=== PATIENT | male | born 1955 | race Caucasian/White ===

== ENCOUNTER 2017-03-13 10:52 | Emergency (ER) | payer OTHER ==
[~2017-03-13] VITALS: Ht 177.8 cm; Wt 71.2 kg
--- NOTE | 2017-03-13 10:52 | NUR ---
PT BIB SELF LEFT FINGER LAC 3RD DIGIT CUTTING LETTUCE W KNIFE. APPLIED PRESSURE ON WOUND. AWAITING MD ORDER
--- NOTE | 2017-03-13 11:17 | NUR ---
Patient discharged to home in stable condition. Written and verbal after care instructions given. Patient verbalizes understanding of instruction.
[2017-03-13 11:56] VITALS: BP 138/85
== END 2017-03-13 11:56 | disposition home or self-care (01) ==
LOC: ER 10:53
DX: S61.212A Laceration without foreign body of right middle finger without damage to nail, initial encounter (principal); I25.2 Old myocardial infarction; Z95.818 Presence of other cardiac implants and grafts; W26.0XXA Contact with knife, initial encounter; Y93.89 Activity, other specified; Y92.89 Other specified places as the place of occurrence of the external cause; Y99.9 Unspecified external cause status
CPT/HCPCS: A4606; A6403; Z7610

== ENCOUNTER 2018-03-20 18:54 | Emergency (ER) | payer OTHER ==
[~2018-03-20] VITALS: Ht 177.8 cm; Wt 78.0 kg
--- NOTE | 2018-03-20 19:17 | NUR ---
RECEIVED REPORT FROM TIMOTHY JORDAN FOR MARCY.
--- NOTE | 2018-03-20 19:20 | NUR ---
PT BB SELF C/O BACK PAIN, LEFT ARM NUMBNESS, AND STATES "JAW FEELS TIGHT" X 4 DAYS. PT DENIES ANY CP AT THIS TIME. VSS. SKIN WNL. -N/V/D. -DIZZINESS. PT IS AAOX4. NO S/S OF ACUTE DISTRESS NOTED. RESP EVEN AND UNLABORED. 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 PT SAFETY AND COMFORT MEASURES IN PLACE. MD AT BEDSIDE FOR EVAL
[2018-03-20 19:43] LABS: BASOPHILS # (AUTO) 0.2 /CMM (0.0-0.2); BASOPHILS % (AUTO) 2.7 % (0.0-2.0); EOSINOPHILS % (AUTO) 6.6 % (0.0-6.0); HEMATOCRIT 45 % (39-51); HEMOGLOBIN 16.2 g/dL (13.5-17.5); LYMPHOCYTES # (AUTO) 2.2 /CMM (0.8-4.8); LYMPHOCYTES % (AUTO) 28.9 % (20.0-44.0); MEAN CORPUSCULAR HGB CONC 37 g/dl (31.0-36.0); MEAN CORPUSCULAR VOLUME 89 fL (80-96); MONOCYTES # (AUTO) 0.5 /CMM (0.1-1.30); MONOCYTES % (AUTO) 6.3 % (2.0-12.0); NEUTROPHILS # (AUTO) 4.1 /CMM (1.8-8.9); NEUTROPHILS % (AUTO) 55.5 % (43.0-81.0); PLATELET COUNT (AUTO) 208 /CMM (150-450); RDW COEFFICIENT OF VARIATION 12.2 (11.5-15.0); RED BLOOD CELL COUNT(AUTO) 5.01 MIL/uL (4.5-6.0); WHITE BLOOD COUNT (AUTO) 7.5 K/uL (4.3-11.0)
[2018-03-20 19:53] LABS: CREATININE 1.1 mg/dL (0.6-1.3); POTASSIUM 3.9 mmol/L (3.5-5.1)
[2018-03-20 20:02] LABS: D-DIMER 0.24 mg/L(FEU (0.17-0.50); INR 0.9 (0.87-1.13); TROPONIN I 0.322 ng/mL (0.00-0.056)
[2018-03-20] MEDS ORDERED: IOHEXOL-350 100 ML VIAL IV ONE (20:36)
[2018-03-20] MEDS ORDERED: IV NS 0.9% 500 ML IV ONE (20:36)
[2018-03-20] MEDS ORDERED: CT SWABBABLE VALVE TRANS SET 1 EA INFUS.SET MC ONE (20:36)
--- NOTE | 2018-03-20 21:04 | NUR ---
PT RESTING IN BED WITH NO S/S OF DISTRESS NOTED. WARM BLANKET PROVIDED TO PT.
[2018-03-20] MEDS ORDERED: ASPIRIN 81 MG TAB.CHEW PO ONE (21:30)
[2018-03-20] MEDS ORDERED: ENOXAPARIN SODIUM 60 MG/0.6 ML DISP.SYRIN SQ ONE (21:30)
[2018-03-20] MEDS ORDERED: ENOXAPARIN SODIUM 80 MG/0.8 ML DISP.SYRIN SQ ONE (21:43)
[2018-03-20] MEDS ORDERED: ASPIRIN 81 MG TAB.CHEW ONE (21:43)
--- NOTE | 2018-03-20 21:47 | NUR ---
CALLED DR CHAMBERLAIN, ON THE PHONE WITH DR QUINN.
--- NOTE | 2018-03-20 21:52 | NUR ---
PT TO RESTROOM
--- NOTE | 2018-03-20 21:57 | NUR ---
PT STATES HE DOES NOT TAKE ANY MEDICATIONS AT HOME. MADE AWARE.
--- NOTE | 2018-03-20 22:35 | NUR ---
Patient is resting comfortably in bed with eyes closed. Easily aroused. VSS
--- NOTE | 2018-03-21 00:25 | NUR ---
PT CURRENTLY DENYING CHEST PAIN. NO SIGNS OF DISTRESS NOTED. BREATHS EQUAL AND UNLABORED. UPDATED ON TRANSFER PROCESS.
--- NOTE | 2018-03-21 00:45 | NUR ---
RECEIVED CALL FROM LILLIE MARGIN ANALYST CHETAN REGARDING TRANSFER INFORMATION: ADMITTING DR: DR Chetna CHAMBERLAIN ROOM 104-A PHONE # FOR REPORT: [phone] [facility] ETA 30 ALS
--- NOTE | 2018-03-21 00:51 | NUR ---
REPORT GIVEN TO LILLIE HUBBARD FOR MARCY.
--- NOTE | 2018-03-21 01:13 | NUR ---
DR JACKSON SPOKE WITH DR AMARO. MADE AWARE OF ELEVATED TROPONIN 1.621
--- NOTE | 2018-03-21 01:14 | NUR ---
CALLED TIMOTHY HUBBARD REGARDING SECOND TROPONIN LEVEL. WAS TOLD BY TIMOTHY HUBBARD ROOM WAS CHANGED TO 114-A
--- NOTE | 2018-03-21 01:38 | NUR ---
[facility] BEDSIDE FOR TRANSFER. REPORT GIVEN TO EMS CREW. PT'S VSS UPON DISCHARGE
[2018-03-21 01:39] VITALS: BP 126/84
--- NOTE | 2018-03-21 01:39 | NUR ---
Patient Tranfers to outside Facility Physician:BULMARO Basilio Location:[facility] [address]
== END 2018-03-21 01:47 | disposition short-term general hospital (02) ==
LOC: ER 18:56
DX: I21.4 Non-ST elevation (NSTEMI) myocardial infarction (principal)
CPT/HCPCS: 36415 ×2; 71045; 71275; 80048; 84484 ×2; 85025; 85378; 85730; 87081; 93005 ×3; 96372; 99291; A4606; J1650; J7040; Q9967; Z7610